=== PATIENT | female | born 1990 | race Caucasian/White ===

== ENCOUNTER 2022-06-25 10:40 | Inpatient (IN) | payer OTHER ==
[~2022-06-25] VITALS: Ht 157.5 cm; Wt 78.5 kg
[2022-06-25 11:00] VITALS: BP 111/74
[2022-06-25] MEDS ORDERED: METHYLERGONOVINE 0.2 MG/ML AMP IM PRN (11:50)
[2022-06-25] MEDS: LACTATED RINGERS 1,000 ML IV SCH ×2 (11:50→18:40)
[2022-06-25] MEDS ORDERED: CARBOPROST 250 MCG/ML AMP IM PRN (11:50)
[2022-06-25 12:16] LABS: BASOPHILS % (AUTO) 0.4 % (0.0-2.0); EOSINOPHILS # (AUTO) 0.1 K/uL (0-0.4); EOSINOPHILS % (AUTO) 1.2 % (0.0-4.0); HEMATOCRIT 36.8 % (36-48); HEMOGLOBIN 12.8 g/dL (12.0-16.0); LYMPHOCYTES # (AUTO) 1.3 K/uL (2.5-16.5); MEAN CORPUSCULAR HEMOGLOBIN 30 pg (27-31); MEAN CORPUSCULAR HGB CONC 35 g/dL (33-37); MEAN CORPUSCULAR VOLUME 87.1 fL (80-94); MONOCYTES # (AUTO) 0.4 K/uL (0.8-1.0); MONOCYTES % (AUTO) 5.3 % (1.7-9.3); NEUTROPHILS # (AUTO) 6.5 K/uL (1.8-7.7); NEUTROPHILS % (AUTO) 77.1 % (42.2-75.2); PLATELET COUNT (AUTO) 186 K/uL (140-450); RED BLOOD CELL COUNT(AUTO) 4.23 MIL/uL (4.20-5.40); RED CELL DISTRIBUTION WIDTH 13.1 % (11.6-13.7); WHITE BLOOD COUNT (AUTO) 8.4 K/uL (4.8-10.8)
[2022-06-25 12:29] LABS: APPEARANCE,URINE HAZY (CLEAR); BILIRUBIN,URINE NEGATIVE (NEGATIVE); BLOOD, URINE NEGATIVE (NEGATIVE); COLOR,URINE YELLOW (YELLOW); LEUKOCYTE ESTERASE ,URINE 1+ (NEGATIVE); NITRITE, URINE NEGATIVE (NEGATIVE); UGLUCOSE NEGATIVE (NEGATIVE)
[2022-06-25 12:39] LABS: ALBUMIN 2.6 g/dL (3.4-5.0); ANION GAP 12.2 (8-16); CARBON DIOXIDE 23.5 mmol/L (21-32); CREATININE 0.7 mg/dL (0.6-1.3); POTASSIUM 3.7 mmol/L (3.5-5.1); TOTAL BILIRUBIN 0.6 mg/dL (0.0-1.0)
[2022-06-25] MEDS: MISOPROSTOL 25 MCG TAB VG SCH ×2 (12:45→18:45)
[2022-06-25 12:51] LABS: RBC,URINE NONE SEEN /HPF (0-5); WBC,URINE 16-25 (MOD) /HPF (0-5)
[2022-06-26] MEDS: LACTATED RINGERS 1,000 ML IV SCH ×4 (02:39→20:37)
[2022-06-26] MEDS: MISOPROSTOL 25 MCG TAB VG SCH ×2 (06:37→12:36)
[2022-06-26] MEDS ORDERED: ONDANSETRON 4 MG/2 ML VIAL IVP PRN (06:40)
[2022-06-26] MEDS ORDERED: MORPHINE SULFATE 5 MG/ML VIAL IVP PRN (06:40)
[2022-06-26] MEDS ORDERED: MORPHINE SULFATE 10 MG/ML VIAL ONE (07:17)
--- NOTE | 2022-06-26 09:37 | NUR ---
PATIENT HAS BEEN SCREENED AND CATEGORIZED LOW NUTRITION RISK. PATIENT WILL BE SEEN WITHIN 7 DAYS OF ADMISSION. 06/25/22-07/02/[address]
[2022-06-26] MEDS ORDERED: BUDE90PO IH (11:47)
[2022-06-26] MEDS ORDERED: PNV1TABL5 PO (11:47)
[2022-06-26] MEDS ORDERED: MISOPROSTOL 25 MCG TAB ONE (12:20)
[2022-06-26] MEDS ORDERED: OXYTOCIN 20 UNITS/LR PREMIX 1,000 ML IV ONE (18:03)
[2022-06-26] MEDS ORDERED: OXYTOCIN 20 UNITS in LACTATED RINGERS 1,000 ML IV SCH (18:05)
[2022-06-26 20:26] LABS: PROTHROMBIN TIME 9.2 secs (10.8-13.4)
[2022-06-26] MEDS ORDERED: ROPIVACAINE 0.2%/NS PREMIX 200 ML EPI ONE (20:51)
[2022-06-26] MEDS ORDERED: fentaNYL citrate 0.05 MG/ML VIAL ONE (20:52)
[2022-06-27] MEDS: LACTATED RINGERS 1,000 ML IV SCH (04:29)
[2022-06-27] MEDS ORDERED: LIDOCAINE 1% 500 MG/50 ML VIAL ONE (07:15)
[2022-06-27] MEDS ORDERED: LIDOCAINE 1% 500 MG/ 50 ML VIAL INJ SCH (07:30)
[2022-06-27] MEDS ORDERED: METHYLERGONOVINE 0.2 MG TAB PO PRN (09:40)
[2022-06-27] MEDS ORDERED: BENZOCAINE/MENTHOL 20%-0.5% 60 GM CAN TP PRN (09:40)
[2022-06-27] MEDS ORDERED: IBUPROFEN 600 MG TAB PO PRN (09:40)
[2022-06-27] MEDS ORDERED: DOCUSATE SODIUM 100 MG GELCAP PO PRN (09:40)
[2022-06-27] MEDS ORDERED: IBUPROFEN 800 MG TAB PO PRN (09:40)
[2022-06-27] MEDS ORDERED: METHYLERGONOVINE 0.2 MG/ML AMP IM PRN (18:45)
[2022-06-28 09:05] LABS: HEMATOCRIT 35.3 % (36-48); HEMOGLOBIN 11.9 g/dL (12.0-16.0)
[2022-06-28] MEDS ORDERED: FLU VACCINE QS2022-23 0.5 ML SYR IMVAC ONE (21:30)
== END 2022-06-29 15:10 | disposition home or self-care (01) | DRG 807 ==
LOC: MLD 10:40 → UNDOADMOB 10:40 → MLD 10:55 → INTOOBSV 11:54 → OBSVTOIN 11:54 → MLD 06-27 10:00 → MFCC 06-27 10:00
PROVIDERS: ADMIT Obstetrics & Gynecology; ATTEND Obstetrics & Gynecology
PROC: 10D07Z6 Extraction of Products of Conception, Vacuum, Via Natural or Artificial Opening (ICD-10-PCS; principal; 2022-06-27)
PROC: 3E0R3BZ Introduction of Anesthetic Agent into Spinal Canal, Percutaneous Approach (ICD-10-PCS; 2022-06-27)
PROC: 00HU33Z Insertion of Infusion Device into Spinal Canal, Percutaneous Approach (ICD-10-PCS; 2022-06-27)
DX: O48.0 Post-term pregnancy (principal); Z37.0 Single live birth; O76 Abnormality in fetal heart rate and rhythm complicating labor and delivery; Z20.822 Contact with and (suspected) exposure to COVID-19; Z3A.40 40 weeks gestation of pregnancy
CPT/HCPCS: 36415; 51702; 59200; 76815; 80053; 81001; 85018; 85025; 85610; 85730; 86592; 86886; 86900; 86901; 87086; 90715; J2001; J2270; J2405; J2590; J2795; J3010; J7120; Q0092